=== PATIENT | female | born 1975 | race Caucasian/White ===

== ENCOUNTER → 2017-01-01 | Outpatient (CLI) | payer BC ==
--- NOTE | 2017-01-01 09:51 | RAD ---
Indication chest pain. Frontal and lateral views of the chest were obtained. No prior imaging of the chest is available. The heart and pulmonary vessels appear normal. There is an opacity in the right middle lobe which is probably inflammatory in nature. A developing nodule is not entirely excluded and follow-up imaging is advised. The left lung is clear. There is no pleural fluid. There is no pneumothorax. IMPRESSION: Opacity in the right middle lobe probably inflammatory. A developing nodule is not entirely excluded. Follow-up imaging advised.
== END | disposition home or self-care (01) ==
LOC: DXRADRC 09:12
PROVIDERS: ATTEND Physician Assistant Medical
DX: R91.1 Solitary pulmonary nodule (principal); R07.89 Other chest pain; Z87.01 Personal history of pneumonia (recurrent)
CPT/HCPCS: 71020

== ENCOUNTER → 2020-06-07 | Outpatient (CLI) | payer BC ==
[2020-06-07 11:32] LABS: BASO % 0 % (0-3); EOS # 0.1 x10^3/uL (0.0-0.7); EOS % 1 % (0-3); HEMATOCRIT 41.5 % (36.0-47.0); HEMOGLOBIN 13.9 g/dL (12.0-15.5); LYMPH # 1.5 x10^3/uL (1.0-4.8); LYMPH % 20 % (24-48); MEAN CORPUSCULAR HEMOGLOBIN 29 pg (25-35); MEAN CORPUSCULAR HGB CONC 34 g/dL (31-37); MEAN CORPUSCULAR VOLUME 86 fL (79-100); MONO # 0.6 x10^3/uL (0.0-1.1); MONO % 8 % (0-9); NEUT # 5.5 x10^3uL (1.8-7.7); NEUT % 71 % (31-73); PLATELET COUNT 259 x10^3/uL (140-400); RED BLOOD COUNT 4.84 x10^6/uL (3.50-5.40); RED CELL DISTRIBUTION WIDTH 13.9 % (11.5-14.5); WHITE BLOOD COUNT 7.7 x10^3/uL (4.0-11.0)
[2020-06-07 11:53] LABS: ALBUMIN 3.6 g/dL (3.4-5.0); CALCIUM 10.3 mg/dL (8.5-10.1); CREATININE 1.6 mg/dL (0.6-1.0); GFR 35.2; POTASSIUM 3.5 mmol/L (3.5-5.1); TOTAL BILIRUBIN 0.5 mg/dL (0.2-1.0); TOTAL PROTEIN 7.2 g/dL (6.4-8.2)
[2020-06-07 12:53] LABS: SEDIMENTATION RATE 21 (0-25)
== END ==
LOC: LAB 10:52
PROVIDERS: ATTEND Physician Assistant Medical
DX: R11.0 Nausea (principal)
CPT/HCPCS: 36415; 80053; 85025; 85651